=== PATIENT | female | born 1975 ===

== ENCOUNTER 2018-03-19 14:45 | Emergency (ER) | payer SELFPAY ==
[2018-03-19 15:16] VITALS: BMI 26.6
[2018-03-19 15:18] VITALS: RESP 18; TEMP 98.4; O2SAT 100
--- NOTE | 2018-03-19 15:19 | ED PDOC ---
Arrival/HPI - General Chief Complaint: Weakness/Neurological Deficit Time Seen by Provider: 03/19/18 15:05 Historian: Patient, Financial Analysis Advisor ([id number]) - History of Present Illness Narrative History of Present Illness (Text): 03/19/18 15:15 A 42 year old female whose past medical history includes hypertension, presents to the emergency department for a complaint of 1 week history of feeling dizzy. The patient notes that she has been taking her blood pressure at home with her 's machine. She notes that it was elevated at 140/90. She states that she has been experiencing numbness to the left side of her body. She describes the numbness as ants crawling all over her left arm and leg. Her [id number] helped with translation. The patient admits to occasional drinking. The patient denies fevers, chills, headache, chest pain, shortness of breath, dyspnea on exertion, cough, abdominal pain, nausea, vomiting, diarrhea, back pain, neck pain, urinary/bowel changes, drug use, smoking or any other complaint. PMD: Dr. Torrez Time/Duration: Prior to Arrival Symptom Onset: Sudden Symptom Course: Unchanged Activities at Onset: Rest, Light Context: Home Associated Symptoms (Text): 03/19/18 16:02 Approximately a one-week history of feeling dizzy with hypertension and numbness on the left side of her body which she describes as ants crawling on her. No chest pain or palpitations. No dyspnea. No nausea or vomiting. No weakness. Past Medical History - Provider Review Nursing Documentation Reviewed: Yes - Cardiac Hx Cardiac Disorders: No - Pulmonary Hx Respiratory Disorders: No - Neurological Hx Neurological Disorder: No - HEENT Hx HEENT Disorder: No - Renal Hx Renal Disorder: No - Endocrine/Metabolic Hx Endocrine Disorders: No - Hematological/Oncological Hx Blood Disorders: No - Integumentary Hx Dermatological Disorder: No - Musculoskeletal/Rheumatological Hx Fractures: Yes (Left Arm and Rt knee) - Gastrointestinal Hx Gastrointestinal Disorders: No - Genitourinary/Gynecological Hx Genitourinary Disorders: No - Psychiatric Hx Substance Use: No - Surgical History Hx Open Reduction Internal Fixation: Yes (left arm & rt. knee) Hx Orthopedic Surgery: Yes - Anesthesia Hx Anesthesia: Yes Hx Anesthesia Reactions: No Family/Social History - Physician Review Nursing Documentation Reviewed: Yes Family/Social History: No Known Family HX Smoking Status: Never Smoked Hx Alcohol Use: No Hx Substance Use: No Allergies/Home Meds Allergies/Adverse Reactions: Allergies aspirin Allergy (Verified 12/21/17 21:44) Home Medications: Home Meds Medication Instructions Recorded Confirmed No Known Home Med 03/19/18 03/19/18 Review of Systems - Physician Review All systems were reviewed & negative as marked: Yes - Review of Systems Constitutional: absent: Fatigue, Fevers, Night Sweats Respiratory: absent: SOB, Cough Cardiovascular: absent: Chest Pain, Palpitations, AGEE, Syncope Gastrointestinal: absent: Abdominal Pain, Stool Changes, Diarrhea, Nausea, Vomiting Genitourinary Female: absent: Urine Output Changes Musculoskeletal: absent: Back Pain, Neck Pain Neurological: Dizziness, Other (Numbness to left arm and leg). absent: Headache , Focal Weakness, Gait Changes, Speech Changes, Facial Droop, Disequilibrium, Seizure Physical Exam Vital Signs Reviewed: Yes Vital Signs Temp Pulse Resp BP Pulse Ox 03/19/18 15:16 98.4 F 86 18 143/80 100 Temperature: Afebrile Blood Pressure: Normal Pulse: Regular Respiratory Rate: Normal Appearance: Positive for: Well-Appearing, Non-Toxic, Comfortable Pain Distress: None Mental Status: Positive for: Alert and Oriented X 3 - Systems Exam Head: Present: Atraumatic, Normocephalic Pupils: Present: PERRL Extroacular Muscles: Present: EOMI Conjunctiva: Present: Normal Ears: Present: NORMAL TM, Normal Canal. No: Erythema Mouth: Present: Moist Mucous Membranes Pharnyx: No: ERYTHEMA, EXUDATE, TONSILS ENLARGED Neck: Present: Normal Range of Motion Respiratory/Chest: Present: Clear to Auscultation, Good Air Exchange. No: Respiratory Distress, Accessory Muscle Use Cardiovascular: Present: Regular Rate and Rhythm, Normal S1, S2. No: Murmurs Abdomen: No: Tenderness, Distention, Peritoneal Signs Back: Present: Normal Inspection Upper Extremity: Present: Normal Inspection. No: Cyanosis, Edema Lower Extremity: Present: Normal Inspection. No: Edema Neurological: Present: GCS=15, CN II-XII Intact, Speech Normal, Motor Func Grossly Intact, Normal Sensory Function, Normal Cerebellar Funct, Gait Normal Skin: Present: Warm, Dry, Normal Color. No: Rashes Psychiatric: Present: Alert, Oriented x 3, Normal Insight, Normal Concentration Medical Decision Making ED Course and Treatment: 03/19/18 15:19 Impression: A 42 year old female presents to the emergency department for a complaint of 1 week duration dizziness and numbness to the left side of her body. Plan: -- Head CT -- EKG -- Chest X-ray -- Labs -- Reassess and disposition Progress Notes: 03/19/18 16:25 EKG shows normal sinus rhythm rate approximately [address] or T-wave changes 03/19/18 16:54 Discussed with , who will follow up in the office. - Lab Interpretations Lab Results: 03/19/18 15:40 03/19/18 15:40 Lab Results 03/19/18 15:40: Sodium 144, Potassium 4.2, Chloride 105, Carbon Dioxide 27, Anion Gap 16, BUN 11, Creatinine 0.8, Est GFR ( Amer) > 60, Est GFR (Non- Af Amer) > 60, Random Glucose 101, Calcium 9.4, Magnesium 1.9, Total Bilirubin 0.1 L, AST 22, ALT 26, Alkaline Phosphatase 73, Lactate Dehydrogenase 468, Total Creatine Kinase 75, Troponin I < 0.01, Total Protein 8.1, Albumin 4.4, Globulin 3.6, Albumin/Globulin Ratio 1.2 03/19/18 15:40: WBC 9.2, RBC 4.58, Hgb 13.5, Hct 40.3, MCV 88.0, MCH 29.5, MCHC 33.5, RDW 13.6, Plt Count 219, MPV 12.8 H, Gran % 72.4 H, Lymph % (Auto) 20.4 L , [place] % (Auto) 5.7, Eos % (Auto) 1.2 L, Baso % (Auto) 0.3, Gran # 6.66 H, Lymph # (Auto) 1.9, [place] # (Auto) 0.5, Eos # (Auto) 0.1, Baso # (Auto) 0.03 I have reviewed the lab results: Yes - RAD Interpretation Radiology Orders: 03/19/18 15:15 HEAD W/O CONTRAST [CT] Stat CHEST ONE VIEW [RAD] Stat CT scan of the head as read by the radiologist shows no acute findings. X-ray chest 1 view shows no acute findings. Hospital Superintendent: Radiologist - EKG Interpretation Interpreted by ED Physician: Yes Type: 12 lead EKG - Scribe Statement The provider has reviewed the documentation as recorded by the Scribe Elise Fitch Provider Gagan Attestation: All medical record entries made by the Scribe were at my direction and personally dictated by me. I have reviewed the chart and agree that the record accurately reflects my personal performance of the history, physical exam, medical decision making, and the department course for this patient. I have also personally directed, reviewed, and agree with the discharge instructions and disposition. Disposition/Present on Arrival - Present on Arrival Any Indicators Present on Arrival: No History of DVT/PE: No History of Uncontrolled Diabetes: No Urinary Catheter: No History of Decub. Ulcer: No History Surgical Site Infection Following: None - Disposition Have Diagnosis and Disposition been Completed?: Yes Diagnosis: Dizziness, Hypertension, Numbness Disposition: HOME/ ROUTINE Disposition Time: 16:55 Patient Plan: Discharge Condition: GOOD Discharge Instructions (ExitCare): High Blood Pressure in Adults, Controlling Your Blood Pressure Through Lifestyle, Dizziness, Nonvertigo, (DC), Paresthesias (DC) Additional Instructions: Follow-up with . Follow-up in the ER as needed. Referrals: Liv Torrez MD [Primary Care Provider] - Follow up with primary Forms: [facility] [facility] ([place])
[2018-03-19 15:52] LABS: BASO # 0.03 K/mm3 (0.0-2.0); BASO % 0.3 % (0.0-3.0); EOS # 0.1 (0.0-0.7); EOS % 1.2 % (1.5-5.0); GRAN # 6.66 (1.4-6.5); GRAN % 72.4 % (50.0-68.0); HEMOGLOBIN 13.5 g/dL (12.0-16.0); LYMPH # 1.9 (1.2-3.4); LYMPH % 20.4 % (22.0-35.0); MEAN CORPUSCULAR HEMOGLOBIN 29.5 pg (25.0-35.0); MEAN CORPUSCULAR HGB CONC 33.5 g/dl (31.0-37.0); MEAN PLATELET VOLUME 12.8 fl (7.0-11.0); MONO # 0.5 (0.1-0.6); MONO % 5.7 % (1.0-6.0); RBC 4.58 10^6/uL (3.5-6.1); RED CELL DISTRIBUTION WIDTH 13.6 % (11.5-14.5); WHITE BLOOD COUNT 9.2 10^3/ul (4.5-11.0)
[2018-03-19 16:01] LABS: ALB/GLOB RATIO 1.2 (1.1-1.8); ALBUMIN 4.4 g/dL (3.0-4.8); ALT/SGPT 26 U/L (7-56); AST/SGOT 22 U/L (14-36); BLOOD UREA NITROGEN 11 mg/dL (7-21); CALCIUM 9.4 mg/dL (8.4-10.5); GFR AFRICAN-AMERICAN > 60; GFR NON-AFRICAN AMERICAN > 60
[2018-03-19 16:12] LABS: TROPONIN I < 0.01 ng/mL
--- NOTE | 2018-03-19 16:33 | RAD ---
PROCEDURE: CHEST RADIOGRAPH, 1 VIEW HISTORY: HTN COMPARISON: None available. FINDINGS: LUNGS: Clear. PLEURA: No pneumothorax or pleural fluid seen. CARDIOVASCULAR: Normal. OSSEOUS STRUCTURES: No significant abnormalities. VISUALIZED UPPER ABDOMEN: Normal. OTHER FINDINGS: None. IMPRESSION: No active disease.
--- NOTE | 2018-03-19 16:34 | CT ---
PROCEDURE: CT HEAD WITHOUT CONTRAST. HISTORY: left sided numbness COMPARISON: None available. TECHNIQUE: Axial computed tomography images were obtained through the head/brain without intravenous contrast. Coronal and sagittal reconstructed images. Radiation dose: Total exam DLP = 716.32 mGy-cm. This CT exam was performed using one or more of the following dose reduction techniques: Automated exposure control, adjustment of the mA and/or kV according to patient size, and/or use of iterative reconstruction technique. FINDINGS: HEMORRHAGE: No intracranial hemorrhage. BRAIN: No mass effect or edema. No atrophy or chronic microvascular ischemic changes. VENTRICLES: Unremarkable. No hydrocephalus. CALVARIUM: Unremarkable. PARANASAL SINUSES: Unremarkable as visualized. No significant inflammatory changes. MASTOID AIR CELLS: Unremarkable as visualized. No inflammatory changes. OTHER FINDINGS: None. IMPRESSION: No acute intracranial abnormalities. No significant findings to account for the clinical presentation. Abort
[2018-03-19 17:22] VITALS: BP 141/88; PULSE 81
--- NOTE | 2018-03-19 18:51 | CARD ---
APPROVED REPORT EKG Measurement Heart [id number] <Conclusion> Normal sinus rhythm Normal ECG
== END 2018-03-19 17:04 | disposition home or self-care (01) ==
LOC: ED 14:45
DX: I10 Essential (primary) hypertension (principal); R42 Dizziness and giddiness; R20.2 Paresthesia of skin